=== PATIENT | female | born 1995 | race Caucasian/White ===

== ENCOUNTER 2017-09-09 04:05 | Outpatient (CLI) | payer OTHER ==
[2017-09-09 04:45] VITALS: BP 120/78; PULSE 93; RESP 16; TEMP 97.8
[2017-09-09 05:42] LABS: Amorphous Sediment,Urine Rare /hpf; Appearance,Urine Cloudy (Clear); Bacteria,Urine Rare /hpf; Bilirubin,Urine Negative (Negative); Blood,Urine Negative (Negative); Color,Urine Yellow; Glucose,Urine (UA) Negative (Negative); Ketones,Urine Negative (Negative); Leukocyte Esterase,Urine Small (Negative); Mucus,Urine Rare /hpf; Nitrite,Urine Negative (Negative); PH, Urine 7.5 (5.0-8.0); Protein,Urine Negative (Negative); RBC,Urine 1 /hpf (0-5); Specific Gravity,Urine 1.014 (1.001-1.035); Squamous Epithelial Cell,Urine 4 /hpf (0-4); Urobilinogen,Urine <2.0 mg/dL (<2.0); WBC,Urine 3 /hpf (0-5)
--- NOTE | 2017-09-18 16:51 | P.MSEPDOC ---
Presenting Problems - Arrival Data Date of Arrival on Unit: 09/09/17 Time of Arrival on Unit: 04:08 Mode of Transport: Ambulatory - Complaint OB-Reason for Admission/Chief Complaint: Pain Comment: lower right side started at 0200 Medical History - Information : 1 Para: 0 Term: 0 : 0 Abortions: Spontaneous or Elective: 0 Number of Living Children: 0 - Gestational Age Gestational Age by KANNAN (wks/days): 35 Weeks and 2 Days Review of Systems - Review of Systems Constitutional: No problems Breast: No problems ENT: No problems Cardiovascular: No problems Respiratory: No problems Gastrointestinal: No problems Genitourinary: No problems Musculoskeletal: No problems Neurological: No problems Skin: No problems Vital Signs - Temperature Temperature: 97.8 F Temperature Source: Temporal Artery Scan - Pulse Right Brachial Pulse Rate: 93 Pulse Assessment Method: Automatic Cuff - Respirations Respiratory Rate: 16 Oxygen Delivery Method: Room Air O2 Sat by Pulse Oximetry: 99 - Blood Pressure Right Arm Blood Pressure: 120/78 Blood Pressure Mean: 92 Blood Pressure Source: Automatic Cuff Medical Screen Scoring (Pre) - Cervical Exam Dilation: Exam Deferred Effacement: Exam Deferred Membranes: Intact - Uterine Contractions Frequency: N/A Duration: N/A Intensity: N/A - Maternal Vital Signs Maternal Temperature: N/A Maternal Blood Pressure: N/A Signs of Preeclampsia: N/A Maternal Respirations: N/A - Pain Assessment Pain Location and Character: Right, Lower, Abdomen Pain Scale Used: Numeric (1 - 10) Pain Intensity: 6 Pain Description: *Acute, Aching Pain Frequency: Constant Pain Duration: 2 Pain Duration Units: Hours Pain Behavior: Guarding Pain Aggravating Factors: Activity - Maternal Trauma Maternal Trauma: N/A - Assessment Baseline FHR: 130 Heart Rate - NICHD Category: Category I (Normal) = 0 NST: Reactive Position: N/A Station: N/A - Total Score Total Score (Pre): 0 - Level of Risk Level of Risk: Low (0-5) Physician Notification (Pre) - Physician Notified Physician Notified Date: 09/09/17 Physician Notified Time: 04:28 Spoke With: Carlo New Order Received: Yes (ok to discharge pending normal UA) Medical Screen Scoring (Post) - Post Treatment Level of Risk Post Treatment Level of Risk: Low (0-5) Physician Notification (Post) - Notification Comment Comment: TRACE barnett, appt today at 0800 Disposition - Disposition OB Disposition: Discharge to home, Written follow up instructions reviewed Discharge Date: 09/09/17 Discharge Time: 06:00 I agree with the RN Medical Screening Exam: Yes Risk & Benefit of care provided described in d/c instruction: Yes Diagnosis: RELATED CONDITIONS, UNSPECIFIED, THIRD TRIMESTER
== END 2017-09-09 06:00 | disposition home or self-care (01) ==
LOC: FBPOP 04:05
PROVIDERS: ATTEND Obstetrics & Gynecology
DX: O26.93 Pregnancy related conditions, unspecified, third trimester (principal); Z3A.34 34 weeks gestation of pregnancy
CPT/HCPCS: 59025; 81001; 99213

== ENCOUNTER 2017-10-15 03:35 | Inpatient (IN) | payer OTHER ==
[2017-10-15] MEDS ORDERED: OXYTOCIN 10 UNIT/ML 1 ML VIAL IM PRN (04:52)
[2017-10-15] MEDS ORDERED: TERBUTALINE 1 MG/ML VIAL SQ PRN (04:52)
[2017-10-15] MEDS ORDERED: LIDOCAINE 1% (PF) 10 MG/ML (30 ML SDV) SQ PRN (04:52)
[2017-10-15] MEDS ORDERED: CARBOPROST TROMETHAMINE 250 MCG/ML 1 ML AMP IM PRN (04:52)
[2017-10-15] MEDS ORDERED: METHYLERGONOVINE 0.2 MG/ML 1 ML AMP IM PRN (04:52)
[2017-10-15] MEDS ORDERED: LACTATED RINGERS 1,000 ML IV SCH ×2 (05:00)
[2017-10-15 05:31] LABS: Basophils % (A) 0 %; Eosinophils # (A) 0.1 k/uL (0-0.7); Eosinophils % (A) 0 %; HGB 12.2 gm/dL (11.4-16.0); Lymphocytes # (A) 1.8 k/uL (1.0-4.8); Lymphocytes % (A) 13 %; MCH 27.7 pg (25.0-35.0); MCHC 33.1 g/dL (31.0-37.0); MCV 83.5 fL (80.0-100.0); Mean Platelet Volume 11.3; Monocytes # (A) 0.7 k/uL (0-1.0); Monocytes % (A) 5 %; Neutrophils # (A) 11.8 k/uL (1.3-7.7); Neutrophils % (A) 82 %; Platelet Count 120 k/uL (150-450); RBC 4.42 m/uL (3.80-5.40); RDW 14.3 % (11.5-15.5)
[2017-10-15 06:06] LABS: Large Platelets Present
[2017-10-15 06:58] VITALS: BMI 29.9
--- NOTE | 2017-10-15 07:31 | P.HPOB ---
History of Present Illness H&P Date: 10/15/17 Chief Complaint: Strong regular uterine contractions. This is a 22-year-old white female 1 para 0 EDC 10/12/2017 at 40-3/7 weeks' gestation. Patient presents this morning with strong regular uterine contractions. Fetus is been active throughout the . She denies fluid leakage or vaginal bleeding. Past medical history is significant for Cipro neuritis and menorrhagia in the past. Past surgical history wisdom teeth extracted. Current medications vitamins daily. ALLERGIES seasonal ALLERGIES only, no known medical ALLERGIES. Family history is significant for hypercholesterolemia, hypertension, diabetes, ashburger's syndrome. Obstetric history significant for blood type A+, rubella status immune. Group B strep cultures, Pap smear, urine culture, gonorrhea and chlamydia cultures all negative. Ultrasound significant for circumvallate placenta. Social history patient is single, she has good support from her family, they have been some social issues involving the father of the baby. On exam this is a pleasant white female, 5 foot 5 inches, 180 pounds, vital signs are stable and patient is afebrile. The general physical exam is within normal limits. The cervix is currently 5 cm dilated, 90% effaced, -1 station, vertex presentation. Artificial amniorrhexis reveals clear fluid. heart rate is consistent at this time with reactive NST. Impression: 40-3/7 weeks intrauterine , here in active spontaneous labor. All signs currently reassuring. Plan: Oxytocin augmentation per hospital protocol. Close maternal and surveillance. Anticipate normal spontaneous vaginal delivery. Past Medical History Past Medical History: No Reported History History of Any Multi-Drug Resistant Organisms: None Reported Past Surgical History: No Surgical Hx Reported Past Anesthesia/Blood Transfusion Reactions: No Reported Reaction Past Psychological History: Anxiety, Depression Smoking Status: Former smoker Past Alcohol Use History: None Reported Past Drug Use History: None Reported - Past Family History Mother Family Medical History: No Reported History Medications and Allergies Home Medications Medication Instructions Recorded Confirmed Type Pnv No.95/Ferrous Fum/Folic AC 1 each PO DAILY 09/09/17 10/15/17 History [ Multivitamin Tablet] Sertraline [Zoloft] 50 mg PO DIRECTED 10/15/17 10/15/17 History Allergies Allergy/AdvReac Type Severity Reaction Status Date / Time No Known Allergies Allergy Verified 10/15/17 03:41 Exam Vital Signs Temp Pulse Resp BP 10/15/17 04:58 98 F 96 16 138/94 10/15/17 04:44 98 F 96 16 138/94 Intake and Output 10/14/17 10/15/17 10/15/17 22:59 06:59 14:59 Other: # Voids 1 Weight 81.647 kg Results Result Diagrams: 10/15/17 05:02 Abnormal Lab Results - Last 24 Hours (Table) 10/15/17 Range/Units 05:02 Plt Count 120 L (150-450) k/uL Neutrophils # 11.8 H (1.3-7.7) k/uL
[2017-10-15] MEDS: BUTORPHANOL 1 MG/ML 1 ML VIAL IV PRN ×2 (09:05→13:12)
[2017-10-15] MEDS: OXYTOCIN 20 UNITS/1000 ML NS 1,000 ML IV SCH (09:45)
[2017-10-15] MEDS ORDERED: NALOXONE 0.4 MG/ML 1 ML VIAL IM STA (13:05)
[2017-10-15] MEDS ORDERED: HYDROCORTISONE 2.5% RECTAL CREAM 30 GM TUBE RECTAL PRN ×2 (16:18→16:32)
[2017-10-15] MEDS ORDERED: ZOLPIDEM 5 MG TAB PO PRN ×2 (16:18→16:32)
[2017-10-15] MEDS ORDERED: diphenhydrAMINE 50 MG CAP PO PRN ×2 (16:18→16:32)
[2017-10-15] MEDS ORDERED: BENZOCAINE/MENTHOL SPRAY 1 GM/SPRAY AEROSOL TOPICAL PRN ×2 (16:18→16:32)
[2017-10-15] MEDS ORDERED: ACETAMINOPHEN TAB 325 MG TAB PO PRN ×2 (16:18→16:32)
[2017-10-15] MEDS ORDERED: LANOLIN CREAM 5 GM TUBE TOPICAL PRN ×2 (16:18→16:32)
[2017-10-15] MEDS ORDERED: diphenhydrAMINE 50 MG/ML 1 ML VIAL IVP PRN ×3 (16:18→16:32)
[2017-10-15] MEDS ORDERED: diphenhydrAMINE ELIXIR 25 MG/10 ML CUP PO PRN (16:18)
[2017-10-15] MEDS ORDERED: HYDROcodone/APAP 5-325MG 1 EACH TAB PO PRN (16:18)
[2017-10-15] MEDS ORDERED: diphenhydrAMINE 25 MG CAP PO PRN ×2 (16:18→16:32)
[2017-10-15] MEDS ORDERED: WITCH HAZEL 1 EACH MED..PAD TOPICAL PRN ×2 (16:18→16:32)
[2017-10-15] MEDS ORDERED: SIMETHICONE 80 MG CHEWABLE PO PRN ×2 (16:18→16:32)
--- NOTE | 2017-10-15 16:18 | P.PROBDLV ---
Vaginal Delivery Note - . Vaginal Delivery Note: This is a 22-year-old white female 1 para 0 EDC 10/12/2017 at 40-3/7 weeks' gestation patient presented today with strong regular uterine contractions, in active labor. has been remarkable for circumvallate placenta, weekly nonstress testing has all been reactive. Patient denied vaginal leakage or bleeding. Artificial amniorrhexis revealed clear fluid. Oxytocin augmentation was started and titrated per hospital protocol. She received Stadol 2 doses, declining the option for epidural. Patient became completely dilated at 1531 hours and began the second stage of labor at that time. Perineal body was prepped and draped in usual sterile fashion. With good maternal expulsive efforts the 's head delivered occiput anterior and restituted accordingly. There was a nuchal cord 1 that was easily reduced. The left or anterior shoulder was then delivered at which time the oropharynx, nasopharynx and external nares were bulb suctioned on the perineal body. Patient was officially delivered of a liveborn male infant at 1559 hours. Umbilical cord was doubly clamped and ligated, he was handed to waiting nurses for evaluation where scores of 8 and 9 at one and 5 minutes respectively were given. Infant weighed 3630 g or 8 pounds. Placenta delivered spontaneously, it was inspected and noted to be intact with trivascular cord at 04/18/2001 hours. It was sent to pathology for evaluation for history of circumvallate nature. Inspection now of the cervix, vagina, perineum, periurethral, and perirectal areas revealed a small second-degree midline perineal laceration. This was injected with 1% lidocaine and repaired in the usual sterile fashion. Fundus is firm and in the midline, symmetric and 18 week size upon completion of delivery. All sponge needle and enhancement counts are correct. Patient is choosing circumcision for her infant son.
[2017-10-15] MEDS ORDERED: IBUPROFEN 600 MG TAB PO PRN (16:32)
[2017-10-15] MEDS: IBUPROFEN 600 MG TAB PO PRN (16:45)
[2017-10-15] MEDS ORDERED: SENNOSIDES-DOCUSATE SODIUM 1 EACH TAB PO SCH (20:00)
[2017-10-15] MEDS: SENNOSIDES-DOCUSATE SODIUM 1 EACH TAB PO SCH (20:46)
[2017-10-16 07:00] LABS: Basophils % (A) 0 %; Eosinophils # (A) 0.1 k/uL (0-0.7); Eosinophils % (A) 1 %; HCT 30.4 % (34.0-46.0); Lymphocytes # (A) 1.7 k/uL (1.0-4.8); Lymphocytes % (A) 16 %; MCH 27.4 pg (25.0-35.0); MCHC 32.5 g/dL (31.0-37.0); MCV 84.3 fL (80.0-100.0); Mean Platelet Volume 10.5; Monocytes # (A) 0.5 k/uL (0-1.0); Monocytes % (A) 5 %; Neutrophils # (A) 7.9 k/uL (1.3-7.7); Neutrophils % (A) 76 %; Platelet Count 104 k/uL (150-450); RDW 14.6 % (11.5-15.5); WBC 10.4 k/uL (4.0-11.0)
[2017-10-16 07:22] LABS: HGB 9.9 gm/dL (11.4-16.0)
[2017-10-16] MEDS: IBUPROFEN 600 MG TAB PO PRN ×2 (07:25→19:37)
[2017-10-16] MEDS: SENNOSIDES-DOCUSATE SODIUM 1 EACH TAB PO SCH ×2 (07:25→19:37)
[2017-10-16 08:15] LABS: Large Platelets Present; Poikilocytosis (M) Present
[2017-10-16 08:18] LABS: WBC 14.5 k/uL (4.0-11.0)
--- NOTE | 2017-10-16 09:08 | P.PN ---
Subjective Progress Note Date: 10/16/17 Principal diagnosis: day #1 Slept well. Positive flatus. Minimal to moderate lochia rubra. No complaints of pain. Objective - Vital Signs Vital signs: Vital Signs Temp 98.3 F 10/16/17 07:19 Pulse 80 10/16/17 07:19 Resp 16 10/16/17 07:19 BP 130/82 10/16/17 07:19 Pulse Ox Intake & Output 10/15/17 10/16/17 10/16/17 18:59 06:59 18:59 Output Total 250 Balance -250 Output: Estimated Blood Loss 250 Other: # Voids 1 1 - Constitutional General appearance: Present: average body habitus, cooperative - EENT Eyes: Present: PERRLA ENT: Present: hearing grossly normal - Neck Neck: Present: normal ROM Thyroid: bilateral: normal size - Respiratory Respiratory: bilateral: CTA - Cardiovascular Rhythm: regular - Genitourinary Genitourinary Comment(s): Perineal body clean and dry, intact. Fundus firm, mobile, symmetric, 18 week size, nontender. - Integumentary Integumentary: Present: normal - Neurologic Neurologic: Present: CNII-XII intact - Musculoskeletal Musculoskeletal: Present: gait normal, strength equal bilaterally - Psychiatric Psychiatric: Present: A&O x's 3, appropriate affect, intact judgment & insight - Labs CBC & Chem 7: 10/16/17 06:38 Labs: Abnormal Lab Results - Last 24 Hours (Table) 10/15/17 10/16/17 Range/Units 05:02 06:38 WBC 14.5 H (4.0-11.0) k/uL RBC 3.60 L (3.80-5.40) m/uL Hgb 9.9 L D (11.4-16.0) gm/dL Hct 30.4 L (34.0-46.0) % Plt Count 104 L (150-450) k/uL Neutrophils # 7.9 H (1.3-7.7) k/uL Assessment and Plan Assessment: Doing well day #1 Plan: Continue care. Likely discharge home tomorrow. in the nursery on antibiotics. Time with Patient: Less than 30
[2017-10-17 00:38] VITALS: TEMP 98.4
[2017-10-17] MEDS: IBUPROFEN 600 MG TAB PO PRN ×2 (07:31→16:12)
[2017-10-17] MEDS: OXYTOCIN 20 UNITS/1000 ML NS 1,000 ML IV SCH (07:55)
[2017-10-17] MEDS: SENNOSIDES-DOCUSATE SODIUM 1 EACH TAB PO SCH (08:00)
--- NOTE | 2017-10-17 09:00 | P.DS ---
Providers Date of admission: 10/15/17 04:47 Expected date of discharge: 10/17/17 Attending physician: Letha Kimbrough Primary care physician: Letha Kimbrough - Discharge Diagnosis(es) (1) Term Current Visit: Yes Status: Acute (2) Status post normal vaginal delivery Current Visit: Yes Status: Acute Hospital Course: This is a very pleasant 22-year-old 1 para 0 that presented to labor and delivery on 75 with complaints of regular painful contractions. She was admitted to labor and delivery amniotomy was performed and clear fluid was obtained. Pitocin augmentation of labor was begun she progressed to complete began pushing and had a normal spontaneous vaginal delivery of a viable male at 1559. Weight 8 pounds, Apgars are 8 and 9 at one and 5 minutes respectively. Of note the was admitted special care nursery for some transient tachypnea versus pneumonia. Patient states he is doing well now and we expect discharge on day #2. Patient's course has been uneventful. On this day #2 she is ambulating and voiding without difficulty. She is tolerating a regular diet. She states her lochia is moderate and she is bottle feeding. Patient Condition at Discharge: Good Plan - Discharge Summary New Discharge Prescriptions: No Action Pnv No.95/Ferrous Fum/Folic AC [ Multivitamin Tablet] 1 each PO DAILY Sertraline [Zoloft] 50 mg PO DIRECTED Discharge Medication List Pnv No.95/Ferrous Fum/Folic AC [ Multivitamin Tablet] 1 each PO DAILY [History] Sertraline [Zoloft] 50 mg PO DIRECTED 10/15/17 [History] Follow up Appointment(s)/Referral(s): Letha Kimbrough MD [Primary Care Provider] - 6 Weeks Patient Instructions/Handouts: Vaginal Delivery (DC), Vaginal Delivery (GEN) Discharge Disposition: HOME SELF-CARE
[2017-10-17 20:27] VITALS: BP 134/84; PULSE 76; RESP 18
== END 2017-10-17 20:00 | disposition home or self-care (01) | DRG 775 ==
LOC: FBPOP 03:35 → 4FBP 04:47
PROVIDERS: ADMIT Obstetrics & Gynecology; ATTEND Obstetrics & Gynecology
PROC: 10E0XZZ Delivery of Products of Conception, External Approach (ICD-10-PCS; principal; 2017-10-15)
PROC: 0KQM0ZZ Repair Perineum Muscle, Open Approach (ICD-10-PCS; 2017-10-15)
DX: O69.81X0 Labor and delivery complicated by cord around neck, without compression, not applicable or unspecified (principal); Z37.0 Single live birth; O99.52 Diseases of the respiratory system complicating childbirth; F32.9 Major depressive disorder, single episode, unspecified; F41.9 Anxiety disorder, unspecified; O43.113 Circumvallate placenta, third trimester; O70.1 Second degree perineal laceration during delivery; J30.2 Other seasonal allergic rhinitis; O99.344 Other mental disorders complicating childbirth; Z3A.40 40 weeks gestation of pregnancy; Z79.899 Other long term (current) drug therapy; Z87.891 Personal history of nicotine dependence; Z83.3 Family history of diabetes mellitus; Z82.49 Family history of ischemic heart disease and other diseases of the circulatory system
CPT/HCPCS: 59025; 84112; 85025; 88307; 99213

== ENCOUNTER → 2024-03-17 | Outpatient (CLI) | payer BC ==
--- NOTE | 2024-03-17 15:52 | US ---
EXAMINATION TYPE: US OB >= 14 wk fetus DATE OF EXAM: 03/17/2024 COMPARISON: None CLINICAL INDICATION: Female, 28 years old with history of O46.92 ANTEPARTUM HEMORRHAGE, UNSPECIFIED, SECOND; History of bleeding for first 11 weeks of . Patient states clots the last few days TECHNIQUE: Transabdominal (TA) FINDINGS: GESTATIONAL AGE / DATING Physician Established: (15 weeks/3 days) EDC: 11/30/2023 Dates by LMP: ( weeks/ days) EDC: Dates by First Scan: ( weeks/ days) EDC: Dates by Current Scan: (16 weeks/5 days) EDC: 08/27/2024 Beta HCG (if available): Not available at this time SURVEY IUP: Single PLACENTA: Anterior PREVIA: Low Lying - appears complete with full bladder - ?resolved post void TERESSA: 10.4 cm Normal CERVICAL LENGTH (transabdominal: norm > 3.0cm): 3.6 cm BIOMETRY PRESENTATION: Variable LIE: Variable BPD: 3.36 cm 16 weeks / 3 days HC: 13.12 cm 16 weeks / 6 days AC: 10.6 cm 16 weeks / 4 days FL: 2.22 cm 16 weeks / 5 days ESTIMATED WEIGHT IN GRAMS: 162 grams ESTIMATED WEIGHT IN LBS/OZ: 0 lbs. 6 oz. WEIGHT PERCENTAGE BASED ON ESTABLISHED DATES: 98% HC/AC: 1.24 Normal FL/AC: 21% Normal HEART RATE: 138 bpm RHYTHM: Normal MATERNAL WALL MEASUREMENT: NA cm from skin to anterior uterine wall (if exam limited due to body habi tus). IMPRESSION: Single live intrauterine gestation with estimated gestational age of 16 weeks 5 days. Estimated due d ate of 08/27/2024. Low lying placenta which appears improved postvoid. [facility], , 03/17/2024 3:50 PM
== END | disposition home or self-care (01) ==
LOC: RADUSWWP 15:08
PROVIDERS: ATTEND Obstetrics & Gynecology
DX: O46.92 Antepartum hemorrhage, unspecified, second trimester (principal); Z3A.16 16 weeks gestation of pregnancy
CPT/HCPCS: 76805

== ENCOUNTER 2024-08-29 06:10 | Inpatient (IN) | payer BC ==
[2024-08-29] MEDS: LACTATED RINGERS 1,000 ML IV SCH (06:20)
[2024-08-29] MEDS ORDERED: CARBOPROST TROMETHAMINE 250 MCG/ML 1 ML AMP IM PRN (06:29)
[2024-08-29] MEDS ORDERED: miSOPROStoL 200 MCG TAB RECTAL PRN (06:29)
[2024-08-29] MEDS ORDERED: OXYTOCIN 10 UNIT/ML 1 ML VIAL IM PRN (06:29)
[2024-08-29] MEDS ORDERED: TERBUTALINE 1 MG/ML VIAL SQ PRN (06:29)
[2024-08-29] MEDS ORDERED: miSOPROStoL 200 MCG TAB PO PRN (06:29)
[2024-08-29] MEDS ORDERED: TRANEXAMIC 1,000 MG/100ML-NACL 1,000 MG in EMPTY BAG 1 BAG IV PRN (06:29)
[2024-08-29] MEDS ORDERED: METHYLERGONOVINE 0.2 MG/ML 1 ML AMP IM PRN (06:29)
[2024-08-29 06:59] LABS: Basophils # (A) 0.05 10*3/uL (0.00-0.10); Basophils % (A) 0.5 %; Eosinophils # (A) 0.18 10*3/uL (0.04-0.35); HCT 33.3 % (37.2-46.3); HGB 10.7 g/dL (12.0-15.0); Immature Platelet Fraction 14.1 % (1.1-6.1); Lymphocytes % (A) 22.8 %; MCH 25.5 pg (27.0-32.0); MCHC 32.1 g/dL (32.0-37.0); MCV 79.5 fL (80.0-97.0); Monocytes # (A) 0.69 10*3/uL (0.20-1.00); Monocytes % (A) 7.5 %; Neutrophils # (A) 6.13 10*3/uL (1.80-7.70); Neutrophils % (A) 66.4 %; Platelet Count 145 10*3/uL (140-440); RBC 4.19 10*6/uL (4.10-5.20); RDW 14.3 % (11.5-14.5); WBC 9.22 10*3/uL (4.50-10.00)
[2024-08-29] MEDS: OXYTOCIN 30 UNITS/500 ML NS 30 UNIT in SALINE 1 500ML.BAG IV SCH (07:10)
[2024-08-29] MEDS: PENICILLIN G POTASSIUM 5,000,000 UNIT in SODIUM CHLORIDE 0.9% 100 ML IVPB STA (07:31)
--- NOTE | 2024-08-29 08:36 | P.HPOB ---
History of Present Illness H&P Date: 08/29/24 Chief Complaint: Elective induction of labor Ms. Lincoln is a 29 year old at 39 weeks and 2 days gestation with EDC of 09/04/24 with reliable dating who presents for elective induction of labor. Her has been essentially uncomplicated. The fetus is estimated to weigh in the 93%ile based on a 32 week growth US. Obstetric history: 1 FTVD 6 years ago work-up: blood type A positive, antibody screen negatie, rubella non-immune, HBsAg negative, HIV negative, gonorrhea negative, chlamydia negative, VDRL non-reactive, 1 hour GTT wnl, GBS positive. Past Medical History Past Medical History: No Reported History History of Any Multi-Drug Resistant Organisms: None Reported Past Surgical History: No Surgical Hx Reported Past Anesthesia/Blood Transfusion Reactions: No Reported Reaction Past Psychological History: Anxiety Smoking Status: Former smoker Past Alcohol Use History: None Reported Past Drug Use History: None Reported - Past Family History Mother Family Medical History: No Reported History Medications and Allergies Home Medications Medication Instructions Recorded Confirmed Type Pnv No.95/Ferrous Fum/Folic AC 1 each PO DAILY 09/09/17 08/29/24 History [ Multivitamin Tablet] Allergies Allergy/AdvReac Type Severity Reaction Status Date / Time No Known Allergies Allergy Verified 10/15/17 03:41 Exam Vital Signs Temp Pulse Resp BP Pulse Ox 08/29/24 06:26 98.6 F 95 16 133/90 99 Intake and Output 08/28/24 08/29/24 08/29/24 22:59 06:59 14:59 Other: Weight 93.894 kg Focused physical exam performed. Healthy appearing in no apparent distress. Abdomen gravid, non-tender. Cervical exam 50/-3. AROM attempted, no fluid return at this time. Extremities non-tender, non-edematous. heart tones Category I with irregular contractions. Results Result Diagrams: 08/29/24 06:29 Abnormal Lab Results - Last 24 Hours (Table) 08/29/24 Range/Units 06:29 Hgb 10.7 L (12.0-15.0) g/dL Hct 33.3 L (37.2-46.3) % MCV 79.5 L (80.0-97.0) fL MCH 25.5 L (27.0-32.0) pg MPV 13.0 H (9.5-12.2) fL Immature Gran # 0.07 H (0.00-0.04) 10*3/uL Immature Plt Fraction 14.1 H (1.1-6.1) % Assessment and Plan Assessment: 29year old at 39 weeks and 2 days presenting for elective induction of labor Plan: Admit, clear liquid diet, pitocin per protocol, continuous EFM and tocometer, anticipate vaginal delivery.
[2024-08-29] MEDS: PENICILLIN G POTASSIUM 2,500,000 UNIT in SODIUM CHLORIDE 0.9% 100 ML IVPB SCH (11:22)
[2024-08-29] MEDS: LIDOCAINE 0.5% (PF) 5 MG/ML (50 ML SDV) SQ PRN (22:20)
[2024-08-29] MEDS ORDERED: ZOLPIDEM 5 MG TAB PO PRN (22:30)
[2024-08-29] MEDS ORDERED: LANOLIN CREAM 1 GM TUBE TOPICAL PRN (22:30)
[2024-08-29] MEDS ORDERED: HYDROCORTISONE 2.5% RECTAL CREAM 30 GM TUBE RECTAL PRN (22:30)
[2024-08-29] MEDS ORDERED: diphenhydrAMINE 50 MG CAP PO PRN (22:30)
[2024-08-29] MEDS ORDERED: SIMETHICONE 80 MG CHEWABLE PO PRN (22:30)
[2024-08-29] MEDS ORDERED: diphenhydrAMINE 50 MG/ML 1 ML VIAL IVP PRN ×2 (22:30)
[2024-08-29] MEDS ORDERED: diphenhydrAMINE 25 MG CAP PO PRN (22:30)
--- NOTE | 2024-08-29 22:30 | P.PROBDLV ---
Vaginal Delivery Note - . Vaginal Delivery Note: DATE OF SERVICE: 08/29/2024 PROCEDURE: Normal Vaginal Delivery ATTENDING: Dr. Zunilda Brito MD ESTIMATED BLOOD LOSS: 200 mL FINDINGS: VMI, Apgars 8/9. Weight 7 pounds and 13 ounces (3560 grams) PROCEDURE: Ms. Lincoln is a 29 year old at 39 weeks and 2 day presenting to labor and delivery for elective induction of labor. For further details, please review the admitting H&P. Pitocin was titrated per protocol. AROM was undertaken at 820 revealing clear amniotic fluid. The patient received epidural anesthesia per her request. The patient was completely dilated at 2148. She pushed effectively with Category I to II FHTs. The head was delivered and one nuchal cord was reduced. A viable male infant was delivered at 2203. The infant was placed on the maternal abdomen and bulb suctioned. The infant was noted to be spontaneously crying. Cord was clamped and cut after a 60-second delay. The was handed off to the pediatric team. Placenta was delivered whole with gentle cord traction at 2207. Oxytocin was started to facilitate uterine tone. Uterine fundus was found to be firm and below the umbilicus upon fundal massage. Thorough examination of the cervix, vagina, periurethral area, and perineum revealed a second degree midline perineal laceration and a periclitoral abrasion. The perineum was infiltrated with lidocaine and repaired with 2-0 Vicryl in the usual fashion. The patient is stable and allowed to begin the bonding process.
[2024-08-29] MEDS: BENZOCAINE/MENTHOL SPRAY 1 GM/SPRAY AEROSOL TOPICAL PRN (23:28)
[2024-08-29] MEDS: IBUPROFEN 800 MG TAB PO SCH (23:28)
[2024-08-30 00:29] LABS: Basophils # (A) 0.04 10*3/uL (0.00-0.10); Basophils % (A) 0.2 %; Eosinophils # (A) 0.01 10*3/uL (0.04-0.35); Eosinophils % (A) 0.1 %; HCT 32.1 % (37.2-46.3); HGB 10.4 g/dL (12.0-15.0); Immature Platelet Fraction 13.1 % (1.1-6.1); Lymphocytes # (A) 0.98 10*3/uL (0.90-5.00); Lymphocytes % (A) 6.1 %; MCH 25.5 pg (27.0-32.0); MCHC 32.4 g/dL (32.0-37.0); MCV 78.7 fL (80.0-97.0); Mean Platelet Volume 13.1 fL (9.5-12.2); Monocytes # (A) 0.57 10*3/uL (0.20-1.00); Monocytes % (A) 3.5 %; Neutrophils # (A) 14.53 10*3/uL (1.80-7.70); Neutrophils % (A) 89.7 %; Platelet Count 133 10*3/uL (140-440); RBC 4.08 10*6/uL (4.10-5.20); RDW 14.3 % (11.5-14.5); WBC 16.19 10*3/uL (4.50-10.00)
[2024-08-30 00:59] LABS: ALT 11 U/L (4-34); AST 22 U/L (14-36); African American GFR (CKD) >90 (>60 ml/min/1.73 sqM); Blood Urea Nitrogen 6 mg/dL (7-17); LDH 233 U/L (120-246); Non-African American GFR(CKD) >90 (>60 ml/min/1.73 sqM)
[2024-08-30 01:30] LABS: Creatinine,Urine Random 82.6 mg/dL; Protein/Creatinine Ratio,Urine 0.412
[2024-08-30 02:02] LABS: Appearance,Urine Cloudy (Clear); Bilirubin,Urine Negative (Negative); Blood,Urine Large (Negative); Color,Urine Light Red; Glucose,Urine (UA) Negative (Negative); Ketones,Urine 2+ (Negative); Leukocyte Esterase,Urine Small (Negative); Mucus,Urine Occasional /hpf; Nitrite,Urine Negative (Negative); PH, Urine 7.5 (5.0-8.0); Protein,Urine Trace (Negative); RBC,Urine >182 /hpf (0-5); Specific Gravity,Urine 1.018 (1.001-1.035); Squamous Epithelial Cell,Urine 1 /hpf (0-4); Urobilinogen,Urine <2.0 mg/dL (<2.0); WBC,Urine 27 /hpf (0-5)
[2024-08-30] MEDS: ACETAMINOPHEN TAB 500 MG TAB PO SCH (02:41)
[2024-08-30 06:04] LABS: Basophils # (A) 0.04 10*3/uL (0.00-0.10); Basophils % (A) 0.3 %; Eosinophils # (A) 0.08 10*3/uL (0.04-0.35); Eosinophils % (A) 0.5 %; HCT 33.5 % (37.2-46.3); HGB 10.8 g/dL (12.0-15.0); Lymphocytes # (A) 1.54 10*3/uL (0.90-5.00); Lymphocytes % (A) 10.1 %; MCH 25.7 pg (27.0-32.0); MCHC 32.2 g/dL (32.0-37.0); MCV 79.6 fL (80.0-97.0); Mean Platelet Volume 12.9 fL (9.5-12.2); Monocytes # (A) 0.91 10*3/uL (0.20-1.00); Neutrophils # (A) 12.58 10*3/uL (1.80-7.70); Neutrophils % (A) 82.6 %; Platelet Count 150 10*3/uL (140-440); RBC 4.21 10*6/uL (4.10-5.20); RDW 14.6 % (11.5-14.5); WBC 15.23 10*3/uL (4.50-10.00)
[2024-08-30] MEDS: SENNOSIDES-DOCUSATE SODIUM 1 EACH TAB PO SCH (07:45)
--- NOTE | 2024-08-30 07:53 | P.PNOBGVD ---
Subjective - Subjective Principal diagnosis: s/p vaginal delivery Interval history: The patient is doing well this morning and had no acute events overnight. She has no complaints this morning. She reports minimal lochia, passing flatus, voiding without difficulty, ambulating, and eating/drinking without nausea or vomiting. She denies chest pain, shortness of breathing, fevers, or chills overnight. She denies pain or swelling in the legs. Patient reports: Reports appetite normal, Reports voiding normally, Reports pain well controlled, Reports ambulating normally : doing well Objective - Latest Vital Signs Latest vital signs: Vital Signs Temp Pulse Resp BP Pulse Ox 08/30/24 07:49 98.2 F 80 16 115/79 99 08/30/24 03:57 97.9 F 90 16 126/81 96 08/30/24 00:20 97 131/67 08/30/24 00:05 98 136/73 08/29/24 23:50 105 H 16 132/77 100 08/29/24 23:35 142/69 08/29/24 23:20 68 15 140/73 08/29/24 23:05 98 15 127/72 08/29/24 22:50 104 H 16 129/67 100 08/29/24 22:35 93 16 129/67 08/29/24 22:20 120 H 16 136/66 Intake and Output 08/29/24 08/30/24 08/30/24 22:59 06:59 14:59 Intake Total 196.9 520 Output Total 200 787 Balance -3.1 -267 Intake: Intake, IV Titration 196.9 Amount Oxytocin 30 Units/500 ml 196.9 Ns 30 unit In Saline 1 500ml.bag @ Per Protocol IV .Q0M [facility] Rx#:[id number] Oral 520 Output: Urine 500 Emesis 200 Output, Quantitative 287 Blood Loss Other: # Voids 1 2 - Exam Extremities: Present: normal Abdomen: Present: normal appearance, soft Uterus: Present: normal, firm - Labs Labs: Abnormal Lab Results - Last 24 Hours (Table) 08/30/24 08/30/24 08/30/24 Range/Units 00:00 00:00 01:00 WBC 16.19 H (4.50-10.00) 10*3/uL RBC 4.08 L (4.10-5.20) 10*6/uL Hgb 10.4 L (12.0-15.0) g/dL Hct 32.1 L (37.2-46.3) % MCV 78.7 L (80.0-97.0) fL MCH 25.5 L (27.0-32.0) pg Plt Count 133 L (140-440) 10*3/uL MPV 13.1 H (9.5-12.2) fL Immature Gran # 0.06 H (0.00-0.04) 10*3/uL Neutrophils # 14.53 H (1.80-7.70) 10*3/uL Eosinophils # 0.01 L (0.04-0.35) 10*3/uL Immature Plt Fraction 13.1 H (1.1-6.1) % BUN 6 L (7-17) mg/dL Creatinine 0.46 L (0.52-1.04) mg/dL Urine Appearance Cloudy H (Clear) Urine Protein Trace H (Negative) Urine Ketones 2+ H (Negative) Urine Blood Large H (Negative) Ur Leukocyte Esterase Small H (Negative) Urine RBC >182 H (0-5) /hpf Urine WBC 27 H (0-5) /hpf Urine Mucus Occasional H (None) /hpf // Range/Units 05:38 WBC 15.23 H (4.50-10.00) 10*3/uL RBC (4.10-5.20) 10*6/uL Hgb 10.8 L (12.0-15.0) g/dL Hct 33.5 L (37.2-46.3) % MCV 79.6 L (80.0-97.0) fL MCH 25.7 L (27.0-32.0) pg Plt Count (140-440) 10*3/uL MPV 12.9 H (9.5-12.2) fL Immature Gran # 0.08 H (0.00-0.04) 10*3/uL Neutrophils # 12.58 H (1.80-7.70) 10*3/uL Eosinophils # (0.04-0.35) 10*3/uL Immature Plt Fraction (1.1-6.1) % BUN (7-17) mg/dL Creatinine (0.52-1.04) mg/dL Urine Appearance (Clear) Urine Protein (Negative) Urine Ketones (Negative) Urine Blood (Negative) Ur Leukocyte Esterase (Negative) Urine RBC (0-5) /hpf Urine WBC (0-5) /hpf Urine Mucus (None) /hpf Assessment and Plan Assessment: 29 year old now PPD#1 s/p Plan: 1. . Patient meeting milestones appropriately. 2. Viable male . Doing well, needs circumcision tomorrow. Dispo: Anticipate discharge home tomorrow.
--- NOTE | 2024-08-31 09:19 | P.DS ---
Providers Date of admission: 08/29/24 06:10 Expected date of discharge: 08/31/24 Attending physician: Zunilda Brito MD Primary care physician: Stated None Hospital Course: 29 year old now PPD#2 s/p after elective induction of labor at 39 weeks. The patient is doing well this morning and had no acute events overnight. She has no complaints this morning. She reports minimal lochia, passing flatus, voiding without difficulty, ambulating, and eating/drinking without nausea or vomiting. Infant doing well at bedside, s/p circumcision. She denies chest pain, shortness of breathing, fevers, or chills overnight. She denies pain or swelling in the legs. restrictions are reviewed with the patient including pelvic rest for 6 weeks. The patient is encouraged to call the office if she experiences any heavy bleeding, foul-smelling discharge, breast complaints, or any if she has any other concerns. She will follow up in the office in 6 weeks for exam. All questions are answered. Patient Condition at Discharge: Good Plan - Discharge Summary New Discharge Prescriptions: No Action Pnv No.95/Ferrous Fum/Folic AC [ Multivitamin Tablet] 1 each PO DAILY Discharge Medication List Pnv No.95/Ferrous Fum/Folic AC [ Multivitamin Tablet] 1 each PO DAILY 09/09/17 [History] Follow up Appointment(s)/Referral(s): Zunilda Brito MD [STAFF PHYSICIAN] - 10/11/24 11:30 am Activity/Diet/Wound Care/Special Instructions: Instructions 1. Do not begin any exercise program for 3 weeks. 2. Do not resume sexual relations for 6 weeks or longer if uncomfortable. 3. You may take tub baths or showers at any time. 4. You may use tampons if desired after 6 weeks. 5. Keep any areas repaired with stitches clean and dry. 6. If you are not nursing, wear a good fitting, supportive bra during the day and limit fluid intake for at least 1 week to prevent breast engorgement. 7. Call the office, , within the next week to make appointment for your 6 week checkup if it has not already been made. 8. Report any of the following occurrences to the doctor promptly: a. Heavy, excessive bleeding b. Chills, fever c. Burning or frequency of urination d. Pain or redness and breasts if nursing e. Increasing pain or swelling of vulva (stitches). In addition to the above instructions, the following additional should be followed: 1. No heavy lifting or straining (exercising) until after 6 week checkup. 2. Keep abdominal incision clean and dry: You may wear a dressing if more comfortable. 3. Make office appointment for 2 weeks after delivery date. Discharge Disposition: HOME SELF-CARE
[2024-08-31 11:26] VITALS: BP 133/90; PULSE 72; RESP 16; TEMP 97.9
== END 2024-08-31 12:20 | disposition home or self-care (01) | DRG 807 ==
LOC: 4FBP 06:10
PROVIDERS: ADMIT Obstetrics & Gynecology; ATTEND Obstetrics & Gynecology
PROC: 0KQM0ZZ Repair Perineum Muscle, Open Approach (ICD-10-PCS; principal; 2024-08-29)
PROC: 3E033VJ Introduction of Other Hormone into Peripheral Vein, Percutaneous Approach (ICD-10-PCS; principal; 2024-08-29)
PROC: 10907ZC Drainage of Amniotic Fluid, Therapeutic from Products of Conception, Via Natural or Artificial Opening (ICD-10-PCS; principal; 2024-08-29)
PROC: 10E0XZZ Delivery of Products of Conception, External Approach (ICD-10-PCS; principal; 2024-08-29)
DX: O99.824 Streptococcus B carrier state complicating childbirth (principal); O99.344 Other mental disorders complicating childbirth; F41.9 Anxiety disorder, unspecified; O69.81X0 Labor and delivery complicated by cord around neck, without compression, not applicable or unspecified; O70.1 Second degree perineal laceration during delivery; Z87.891 Personal history of nicotine dependence; Z3A.39 39 weeks gestation of pregnancy; Z37.0 Single live birth
CPT/HCPCS: 81001; 82565; 82570; 83615; 84156; 84450; 84460; 84520; 84550; 85025; 86850; 86900; 86901